=== PATIENT | male | born 1975 | race Caucasian/White ===

== ENCOUNTER → 2017-06-15 | Outpatient (CLI) | payer OTHER ==
[2013-01-27 13:58] VITALS: BP 140/79
--- NOTE | 2017-06-16 09:42 | CT ---
History: Chronic sinusitis and deviated nasal septum. Study: CT sinus without contrast. Comparison: None. Technique: Multiple contiguous axial images of the sinuses without contrast. Coronal/sagittal reforma ts were obtained. Findings: Mild mucosal thickening of the frontal sinuses and ethmoidal air cells. Mucous retention cy sts and mild mucosal thickening is seen of the maxillary sinuses. The sphenoid sinuses are clear. The mastoid air cells are clear. Mild right nasal septum deviation. The ostiomeatal units, and sphenoeth moidal recesses are patent. Mild obstruction of the bilateral frontoethmoidal recesses. The lamina pa pyracea appear intact. The orbits are unremarkable. The visualized bones and surrounding soft tissues are unremarkable. Impression: Sinus disease as above. Reported By:
--- NOTE | 2017-06-16 11:03 | CT ---
HISTORY: Lymphadenopathy adjacent to the right mandible. Study: CT soft tissue neck with contrast Comparison: None. Technique: Multiple axial images of the soft tissue neck were obtained from skull base to the aortic arch after the administration of IV contrast. Sagittal and coronal reformats were performed and revi ewed. Dose reduction techniques including Automated Exposure Control (AEC) and adjustment of mA and kV were utilized. Findings: Multiple radiopaque densities are seen within the right floor of mouth, the largest measuring 1.6 cm in greatest dimension. These likely represent ductal stones within Katherine's duct. No obvious associa fabi sialocele or fluid collection to suggest abscess formation. The visualized portions of the morgue technician ior fossa and orbits are unremarkable in appearance. The parotid glands, submandibular glands, and t hyroid gland are unremarkable in their contrast appearance. The carotid space on the right and left is unremarkable. No mass or significant lymphadenopathy can be identified. The prevertebral and par aspinous regions are unremarkable. The nasopharynx, oropharynx, hypopharynx are unremarkable. The l arynx appears symmetric. The vascular structures are unremarkable in their appearance. The aortic a rch is unremarkable. The mediastinum is unremarkable. Mild/moderate centrilobular emphysematous munoz ges of the lung apices. Degenerative changes of the cervical spine. The osseous structures are otherw ise intact. IMPRESSION: 1. No CT evidence of acute pathology. 2. Other chronic findings as above. Reported By:
== END ==
LOC: RAD 08:59
PROVIDERS: ATTEND Internal Medicine
DX: R59.0 Localized enlarged lymph nodes (principal); J32.8 Other chronic sinusitis; J34.2 Deviated nasal septum
CPT/HCPCS: 70486; 70491; A4222